=== PATIENT | male | born 1990 | race Native Hawaiian/Other Pacific Islander ===

== ENCOUNTER 2020-03-19 12:01 | Emergency (ER) | payer OTHER, SELFPAY ==
[2020-03-19 12:23] VITALS: BP 123/74; PULSE 82; RESP 16; TEMP 36.9; O2SAT 100; BMI 25.1
--- NOTE | 2020-03-19 12:46 | ED.HEATRA ---
HPI - Head Injury General Chief complaint: Head Injury Stated complaint: Hit With Bungee Chord In Head, Laceration Time Seen by Provider: 03/19/20 12:46 Source: patient Mode of arrival: Ambulatory Limitations: no limitations History of Present Illness HPI Narrative: 29-year-old gentleman who was at work this afternoon unhooked of bungee cord and that flew back and hit him between the eyes and he suffered a 1 cm partial laceration between his eyebrows. There is no eye involvement. No loss of consciousness and no other subsequent injury. He Related Data Home Medications Medication Instructions Recorded Confirmed No Known Home Medications 02/11/20 02/11/20 Allergies Allergy/AdvReac Type Severity Reaction Status Date / Time No Known Drug Allergies Allergy Unverified 02/11/20 14:47 Review of Systems Review of Systems Narrative: Pertinent positive and negative findings as per HPI Remainder of review of systems is otherwise unremarkable for Constitutional: Fevers, chills, weakness ENT: No sore throat, neck pain, ear pain CV: Chest pain, palpitations, Respiratory: Cough, wheeze, dyspnea GI: Nausea, vomiting, diarrhea, change in bowel habits, black or bloody stools Patient History Social History Smoking Status: Never smoker Smoking Status: Never smoker Substance Use Type: does not use Exam Narrative Exam Narrative: General: Alert appropriate in no acute distress HEENT: 1 cm partial-thickness laceration just to the medial side of the right eyebrow. Bleeding is controlled. Wound is clean. Respiratory: Able to speak in full sentences, no obvious respiratory distress Skin: No obvious rashes, warm and dry Neurologic: Grossly intact no obvious asymmetries or abnormalities Psych, appropriate insight and affect, cooperative Initial Vital Signs Initial Vital Signs: Vital Signs Temperature 98.5 F 03/19/20 12:23 Pulse Rate 82 03/19/20 12:23 Respiratory Rate 16 03/19/20 12:23 Blood Pressure 123/74 03/19/20 12:23 Pulse Oximetry 100 03/19/20 12:23 Procedures Laceration Repair Forehead: Site: face Size (cm): 1 Description: linear Depth: simple, single layer Skin layer closed with: dermabond Course Orders Ordered: Discontinued Medications Diphtheria/Tetanus/Acell Pertussis (Tet,Diph,Pertuss(Acell),Vac/Pf 0.5 Ml Syringe) 0.5 ml IM .ONCE ONE Stop: 03/19/20 12:51 Last Admin: 03/19/20 12:56 Dose: 0.5 ml Documented by: MMINOR Vital Signs Vital signs: Vital Signs - 8 hr 03/19/20 12:23 Temperature 98.5 F Pulse Rate 82 Respiratory Rate 16 Blood Pressure 123/74 Pulse Oximetry 100 MDM - Head Injury MDM Narrative Medical decision making narrative: Minor partial-thickness laceration between the eyebrows. [place] bonded with good aesthetic result. Tetanus status is updated today. L&I forms are filled out safe for home discharge Discharge Plan Departure Patient Disposition: Home Clinical Impression: Face lacerations Qualifiers: Encounter type: initial encounter Qualified Code(s): S01.81XA - Laceration without foreign body of other part of head, initial encounter Instructions: DI for Laceration Repair-Skin Glue, Tetanus, Diphtheria, Pertussis (Tdap) Vaccine Activity Restrictions/Additional Instructions: Thank you for coming in today The wound came together nicely with medical glue. Please try to leave the medical glue in place for at least 3 days if you can get for a 5 out of it it would be even better. It is okay to/her face with water to wash it and simply pat dry around the wound itself. If you do notice increasing redness, pain or drainage that would be very unusual and you do need to have that re-evaluated We did update your tetanus shot today. Ibuprofen can be helpful tomorrow if your arm is a bit sore I wish you the best Prescriptions: No Action No Known Home Medications RF: 0 Referrals: Miscellaneous,Doctor[facility] [Primary Care Provider] -
[2020-03-19] MEDS: TET,DIPH,PERTUSS(ACELL),VAC/PF 0.5 ML SYRINGE IM (12:56)
== END 2020-03-19 13:12 | disposition home or self-care (01) ==
PROVIDERS: Emergency Provider Emergency Medicine
DX: S01.81XA Laceration without foreign body of other part of head, initial encounter (principal); W22.8XXA Striking against or struck by other objects, initial encounter; Z23 Encounter for immunization; Y99.0 Civilian activity done for income or pay
CPT/HCPCS: 90471; 99281; 99283; 90715